=== PATIENT | male | born 1990 | race Caucasian/White ===

== ENCOUNTER 2018-12-07 16:57 | Emergency (ER) | payer MEDICAID, OTHER ==
[2018-12-07] MEDS: SOD CHLORIDE 0.9% 500 ML IV (17:38)
[2018-12-07] MEDS: morphine LIQ (10 MG/5 ML) CUP PO (17:41)
[2018-12-07] MEDS: DEXAMETHASONE 10 MG/ML 1 ML INJ IV (17:41)
[2018-12-07] MEDS: KETOROLAC 30 MG INJ IV (17:42)
[2018-12-07] MEDS: CLINDAMYCIN 900 MG/D5W (PMX) 50 ML IVPB (17:53)
== END 2018-12-07 18:56 | disposition home or self-care (01) ==
LOC: FTE 16:57
DX: K04.7 Periapical abscess without sinus (principal)
CPT/HCPCS: 96374; 96375; 99284-25